=== PATIENT | male | born 1940 | race Caucasian/White ===

== ENCOUNTER → 2018-10-03 | Day surgery (SDC) | payer MEDICARE ==
[2018-09-28 12:05] LABS: BASOPHILS # (AUTO) 0.1 (0.0-0.1); BASOPHILS % 0.4 % (0.0-1.0); EOSINOPHILS # (AUTO) 0.3 (0.0-0.4); EOSINOPHILS % 2.1 % (0.0-6.0); HEMATOCRIT 42.4 % (38.2-49.6); HEMOGLOBIN 14.6 g/dL (14.0-18.0); LYMPHOCYTES # (AUTO) 2.8 (1.0-3.2); MEAN CORPUSCULAR HEMOGLOBIN 31.5 pg (28-32); MEAN CORPUSCULAR HGB CONC 34.4 g/dL (31-35); MEAN CORPUSCULAR VOLUME 91.6 fL (81-99); MONOCYTES % 7.2 % (4.4-11.3); NEUTROPHILS # (AUTO) 10.3 (2.1-6.9); NEUTROPHILS % 70.6 % (38.7-80.0); PLATELET COUNT 291 x10e3/uL (140-360); RED BLOOD COUNT 4.63 x10e6/uL (4.3-5.7); RED CELL DISTRIBUTION WIDTH 13.3 % (11.7-14.4)
[2018-09-28 12:29] LABS: ALANINE AMINOTRANSFERASE 9 IU/L (0-55); ALBUMIN 4.1 g/dL (3.5-5.0); ALKALINE PHOSPHATASE 141 IU/L (40-150); ANION GAP 16.1 mmol/L (8-16); BLOOD UREA NITROGEN 16 mg/dL (7-26); BUN/CREATININE RATIO 18 (6-25); CARBON DIOXIDE 25 mmol/L (22-29); CHLORIDE 101 mmol/L (98-107); CREATININE, SERUM 0.89 mg/dL (0.72-1.25); EST GLOMERULAR FILTRATION RATE > 60 ML/MIN (60-); GLUCOSE 116 mg/dL (74-118); POTASSIUM 4.1 mmol/L (3.5-5.1); SODIUM 138 mmol/L (136-145)
[~2018-10-03] VITALS: Ht 177.8 cm; Wt 115.7 kg
[2018-10-03] VITALS (14 sets, daily range): BP systolic 105–124; BP diastolic 46–87
[~2018-10-03] MED LIST: ALPRAZOLAM 0.5 MG TAB ONE; ASPIRIN 325 MG TAB ONE; BIVALRIUDIN 250 MG/VIAL VIAL IV ONE; CENTRUM SILVER1 EAC3 PO; CHLORPHENIRAMINE4 MG PO; DIPHENHYDRAMINE HCL 25 MG CAP ONE; FENTANYL CITRATE/PF 100MCG/2 ML INJ ONE; GLIPIZIDE ER5 MG PO; HEPARIN SOD/SOD CHLORIDE 2,000 ML ONE; IOPAMIDOL 370 MG/ML 200 ML INFUS..BTL INJ ONE; KEPPRA500 MG PO; LASIX40 MG PO; LIDOCAINE HCL 2% LOCAL 20 ML VIAL ONE; LIPITOR10 MG PO; MELATONIN3 MG PO; MIDAZOLAM HCL 2 MG/2 ML VIAL ONE; MODAFINIL200 MG PO; NITROGLYCERIN0.4 MG SL; PHENOBARBITAL32.4 MG PO; POTASSIUM CHLO10 ME1 PO; PRILOSEC20 MG PO; PROPANOLOL PO; ROBITUSSIN COU118 ML PO; SODIUM CHLORIDE 0.9% 1000ML 1,000 ML ONE; SODIUM CHLORIDE 0.9% 50ML 50 ML ONE; TICAGRELOR 90 MG TABLET ONE; VERAPAMIL HCL 2.5 MG/ML 2 ML VIAL ONE; VITAMIN B-121000 MCG PO; VITAMIN B-650 MG PO; ZAROXOLYN2.5 MG PO; ZINC SULFATE220 MG PO; [UNRECOGNIZED DRUG - OTHER] PO
--- OUTSIDE RECORDS SUMMARY | 2018-10-03 10:58 | XMS REPORT | Continuity of Care Document ---
Author Author [employer] Address Unknown Phone Unavailable Problems Problem Status Onset Date Classification Date Reported Comments Source BDDC-COLON SCREENING Active 10/24/2013 [facility] SAW DR PERLA OLVERA Active 09/21/2013 [facility] Epilepsy Resolved Problem 10/26/2013 [facility] Hypertension Resolved Problem 10/26/2013 [facility] ROUTINE MEDICAL EXAM Active [facility] Medications Medication Details Route Status Patient Instructions Ordering Provider Order Date Source {2 (480 ML Magnesium Sulfate 0.0277 MEQ/ML / potassium sulfate 0.0374 MEQ/ML / sodium sulfate 0.257 MEQ/ML Oral Solution) } Pack [Suprep Bowel Prep Kit] 177 mL, PO, BID, # 354 mL, 0 Refill(s), Pharmacy: [facility]/pharmacy #[id number] Active 10/24/2013 [facility] POLYETHYLENE GLYCOL 3350 60 MG/ML / Potassium Chloride 0.01 MEQ/ML / Sodium Bicarbonate 0.02 MEQ/ML / Sodium Chloride 0.025 MEQ/ML / sodium sulfate 0.04 MEQ/ML Oral Solution [Golytely] 240 ml, PO, Q10Min, # 1 ea, 0 Refill(s), Pharmacy: [facility]/pharmacy #[id number] Active 10/24/2013 [facility] Furosemide 40 MG Oral Tablet [Lasix] 0 Refill(s) Active 10/24/2013 [facility] Inderal 10 mg=1 tab, PO, QID, # 100 tab, 0 Refill(s) Active 10/24/2013 [facility] Unisom 0 Refill(s) Active 10/24/2013 [facility] Keppra 0 Refill(s) Active 10/24/2013 [facility] Phenobarbital 0 Refill(s) Active 10/24/2013 [facility] Aspirin Low Dose 81 mg oral tablet 0 Refill(s) Active 10/24/2013 [facility] Atrovent HFA 0 Refill(s) Active 10/24/2013 [facility] Ventolin HFA 0 Refill(s) Active 10/24/2013 [facility] 120 ACTUAT Fluticasone propionate 0.05 MG/ACTUAT Nasal Inhaler [Flonase] 0 Refill(s) Active 10/24/2013 [facility] Lipitor 0 Refill(s) Active 10/24/2013 [facility] Nitroglycerin 0.4 MG Sublingual Tablet [Nitrostat] 0.4 mg=1 tab, SL, Q5Min, Chest Pain, # 100 tab, 0 Refill(s) Active 10/24/2013 [facility] Klor-Con 0 Refill(s) Active 10/24/2013 [facility] omeprazole 20 mg oral delayed release capsule See Instructions, # 60 unknown unit, Refill(s) 5, TAKE ONE CAPSULE BY MOUTH TWICE A DAY, Pharmacy: [facility]/pharmacy #[id number] Instructions: TAKE ONE CAPSULE BY MOUTH TWICE A DAY Active 10/09/2013 [facility] omeprazole 20 mg oral delayed release capsule See Instructions, # 60 unknown unit, Refill(s) 5, TAKE ONE CAPSULE BY MOUTH TWICE A DAY, Pharmacy: [facility]/pharmacy #[id number] Instructions: TAKE ONE CAPSULE BY MOUTH TWICE A DAY No Longer Active 10/09/2013 [facility] omeprazole 20 mg oral delayed release capsule 20 mg=1 cap, PO, BID, # 60 cap, 4 Refill(s), Pharmacy: [facility]/pharmacy #[id number] No Longer Active 09/25/2013 [facility] Allergies, Adverse Reactions, Alerts Substance Category Reaction Severity Reaction type Status Date Reported Comments Source doxycycline Assertion Drug allergy Active [facility] penicillins Assertion Drug allergy Active [facility] Immunizations Immunization Date Given Site Status Last Updated Comments Source Results Order Name Results Value Reference Range Date Interpretation Comments Source Vital Signs Vital Sign Value Date Comments Source Weight 121.364 10/24/2013 [facility] Systolic (mm Hg) 143 10/24/2013 [facility] Diastolic (mm Hg) 95 10/24/2013 [facility] Heart Rate 87 10/24/2013 [facility] Respitory Rate 16 10/24/2013 [facility] BMI Calculated 38.39 10/24/2013 [facility] Height 177.8 cm 10/24/2013 [facility] Encounters Location Location Details Encounter Type Encounter Number Reason For Visit Attending Provider ADM Date DC Date Status Source [facility] [id number] Emanuel Schulte 10/24/2013 10/25/2013 [facility] Procedures Procedure Code Date Perfomer Comments Source
--- OUTSIDE RECORDS SUMMARY | 2018-10-03 10:58 | XMS REPORT | Summary of Care ---
Author Organization Unknown Address Unknown Phone Unavailable Encounter SHANIKA Mobley(NA) [id number] Date(s): 10/24/13 - 10/24/[address] Discharge Disposition: Home Physician Attending: Emanuel Schulte MD Physician_Referring: Emanuel Schulte MD Reason for Visit SAW DR PERLA OLVERA Vital Signs Most recent to 1 oldest [Reference Range]: Height 177.8 cm (10/24/13 1:57 PM) Systolic Blood 143 mmHg Pressure [90-140 *HI* mmHg] (10/24/13 1:57 PM) Diastolic Blood 95 mmHg Pressure [60-90 *HI* mmHg] (10/24/13 1:57 PM) Respiratory Rate 16 BRMIN [14-20 BRMIN] (10/24/13 1:57 PM) Peripheral Pulse 87 bpm Rate [60-100 bpm] (10/24/13 1:57 PM) Weight 121.364 kg (10/24/13 1:57 PM) Body Mass Index 38.39 m2 (10/24/13 1:57 PM) Problem List Condition Effective Dates Status Health Status Informant Epilepsy(Confirmed) Resolved Hypertension(Confirm Resolved ed) Allergies, Adverse Reactions, Alerts Substance Reaction Severity Status doxycycline Active penicillins Active Medications Aspirin Low Dose 81 mg oral tablet 0 Refill(s) Start Date: 10/24/13 Status: Ordered Atrovent HFA 0 Refill(s) Start Date: 10/24/13 Status: Ordered Flonase 0.05 mg/inh nasal spray 0 Refill(s) Start Date: 10/24/13 Status: Ordered GoLYTELY oral powder for reconstitution 240 ml, PO, Q10Min, # 1 ea, 0 Refill(s), Pharmacy: [facility]/pharmacy #[id number] Start Date: 10/24/13 Status: Ordered Inderal 10 mg=1 tab, PO, QID, # 100 tab, 0 Refill(s) Start Date: 10/24/13 Status: Ordered Keppra 0 Refill(s) Start Date: 10/24/13 Status: Ordered Klor-Con 0 Refill(s) Start Date: 10/24/13 Status: Ordered Lasix 40 mg oral tablet 0 Refill(s) Start Date: 10/24/13 Status: Ordered Lipitor 0 Refill(s) Start Date: 10/24/13 Status: Ordered Nitrostat 0.4 mg sublingual tablet 0.4 mg=1 tab, SL, Q5Min, Chest Pain, # 100 tab, 0 Refill(s) Start Date: 10/24/13 Status: Ordered omeprazole 20 mg oral delayed release capsule 20 mg=1 cap, PO, BID, # 60 cap, 4 Refill(s), [id number] Start Date: 09/25/13 Stop Date: 10/24/13 Status: Deleted omeprazole 20 mg oral delayed release capsule See Instructions, # 60 unknown unit, Refill(s) 5, TAKE ONE CAPSULE BY MOUTH TWIC E A DAY, Pharmacy: [facility]/pharmacy #[id number] Special Instructions: TAKE ONE CAPSULE BY MOUTH TWICE A DAY Start Date: 10/09/13 Status: Ordered omeprazole 20 mg oral delayed release capsule See Instructions, # 60 unknown unit, Refill(s) 5, TAKE ONE CAPSULE BY MOUTH TWIC E A DAY, Pharmacy: [facility]/pharmacy #[id number] Special Instructions: TAKE ONE CAPSULE BY MOUTH TWICE A DAY Start Date: 10/09/13 Stop Date: 10/24/13 Status: Deleted PHENobarbital 0 Refill(s) Start Date: 10/24/13 Status: Ordered Suprep Bowel Prep Kit oral liquid 177 mL, PO, BID, # 354 mL, 0 Refill(s), Pharmacy: [facility]/pharmacy #[id number] Start Date: 10/24/13 Status: Ordered Unisom 0 Refill(s) Start Date: 10/24/13 Status: Ordered Ventolin HFA 0 Refill(s) Start Date: 10/24/13 Status: Ordered Medications Administered During Your Visit No data available for this section Immunizations No data available for this section Social History Social History Type Response Smoking Status Never smoker, Exposure to Tobacco Smoke None, Cigarette Smoking Last 365 Days No, Reg Smoking Cessation Counseling No
--- NOTE | 2018-10-03 12:57 | NUR ---
1257pm Received in Rm #[address] [facility] Helms with stent placement. Identifierx2 Report handoff from Jared Whiteside to Chapis Whiteside to ERNESTO/RN.Pt has copy of new prescription. No gross issues with pain pallor pressure or dysrhythmia.BAck to baseline orientation Resp shallow and regular Abdomen soft and non tender denies necessity to defecate or urinate. Tolerating po intake. Left ac iv infusing NS w/o s/s infiltration. TR band site w/o issues of hematoma or oozing.Neuro vascular function intact to right wrist area. For decreasing TR band air at 1500pm and dc ok at 1700pm Will call nizuly for pickup. ernesto/rn
--- NOTE | 2018-10-03 15:00 | NUR ---
1500 release of TR band air to 12cc bladder initiated. -2cc No gross issues with pain pallor pressure or dysrhythmia. vascular-neuro function intact to right hand,radial pulse adequate 1515pm-2cc vascular-neuro function intact to right hand,radial pulse adequate 1530pm -2cc vascular-neuro function intact to right hand,radial pulse adequate 1545pm -2cc vascular-neuro function intact to right hand sterile 2x2 ,Coban and Tegderm in place. Arm splint applied called niece for pt lemon picker ds/rn
--- NOTE | 2018-10-03 17:15 | NUR ---
1715 Niece arrived DC plans discussed both aware of POC and importance to f/o with Dr Helms Dressed and escorted to car wiht her as dedicated regional driver per w/c Iv was removed and site w/o s/s in filtration and Coban dressing in place. Buckled in car for safety Tolerating PO intake and back to baseline orientation. No gross issues with pain,pallor, pressure or dysrhythmia. ds/rn
--- NOTE | 2018-11-06 11:26 | Operative Report ---
DATE OF PROCEDURE: 10/03/2018 SURGEON: Shan Helms MD INDICATION: Coronary artery disease, abnormal stress test. PROCEDURES PERFORMED: 1. Left heart catheterization, selective coronary angiography, left ventriculography. 2. Stent placement to the mid and proximal circumflex artery. 3. Deployment right wrist TR band. COMPLICATIONS: None. RECOMMENDATIONS: Dual antiplatelet therapy for at least 6 months. DESCRIPTION OF PROCEDURE: Access obtained in the right radial artery. A 5-Israeli sheath was placed. Diagnostic coronary angiogram revealed mild disease in the left main and left anterior descending artery, diagonal artery 50% ostial stenosis, mid circumflex 80% stenosis, right coronary artery mild less than 20% stenosis, LV ejection fraction 40%, LV end-diastolic pressure of 10. A decision was made to intervene on the circumflex artery. The patient received Angiomax, oral aspirin and Brilinta for anticoagulation. The left main was cannulated using an XB 3 and EBU 3.75, 5-Israeli guiding catheter, primary stent 2.75 x 18 mm Resolute Lambert deployed at 14 atmospheres. Postdilatation with a 3.75 mm balloon. Excellent end result less than 10% residual stenosis, PRABHA-3 flow. No complications. Right wrist wire guide sheath removed, TR band applied. The patient discharged home same day. Shan Helms MD [facility] /[id number]
== END | disposition home or self-care (01) ==
LOC: CATH LAB 10:51
PROVIDERS: ATTEND Internal Medicine Interventional Cardiology
DX: I25.10 Atherosclerotic heart disease of native coronary artery without angina pectoris (principal); R94.39 Abnormal result of other cardiovascular function study; I25.2 Old myocardial infarction; Z86.73 Personal history of transient ischemic attack (TIA), and cerebral infarction without residual deficits; I25.118 Atherosclerotic heart disease of native coronary artery with other forms of angina pectoris; I73.9 Peripheral vascular disease, unspecified; I87.2 Venous insufficiency (chronic) (peripheral); Z01.812 Encounter for preprocedural laboratory examination; Z79.84 Long term (current) use of oral hypoglycemic drugs; Z68.41 Body mass index [BMI] 40.0-44.9, adult; Z82.49 Family history of ischemic heart disease and other diseases of the circulatory system; Z82.3 Family history of stroke
CPT/HCPCS: 93458; C9600; 36415; 80053; 85025; 92928; C1769; C1874; C1887; J0583; J2001; J2250; J3010; J7030; Q9967

== ENCOUNTER 2019-02-08 05:54 | Observation (INO) | payer MEDICARE ==
[~2019-02-08] VITALS: Ht 177.8 cm; Wt 111.1 kg
[~2019-02-08 05:54] MED LIST changes: -ALPRAZOLAM 0.5 MG TAB ONE; -ASPIRIN 325 MG TAB ONE; -BIVALRIUDIN 250 MG/VIAL VIAL IV ONE; -DIPHENHYDRAMINE HCL 25 MG CAP ONE; -FENTANYL CITRATE/PF 100MCG/2 ML INJ ONE; -HEPARIN SOD/SOD CHLORIDE 2,000 ML ONE; -IOPAMIDOL 370 MG/ML 200 ML INFUS..BTL INJ ONE; -LIDOCAINE HCL 2% LOCAL 20 ML VIAL ONE; -MIDAZOLAM HCL 2 MG/2 ML VIAL ONE; -SODIUM CHLORIDE 0.9% 1000ML 1,000 ML ONE; -SODIUM CHLORIDE 0.9% 50ML 50 ML ONE; -TICAGRELOR 90 MG TABLET ONE; -VERAPAMIL HCL 2.5 MG/ML 2 ML VIAL ONE
--- OUTSIDE RECORDS SUMMARY | 2019-02-08 05:56 | XMS REPORT | Continuity of Care Document ---
Author Author [employer] Address Unknown Phone Unavailable Care Team Providers Care Internet Sales Consultant Name Role Phone [employer] Unavailable Unavailable Problems Problem Status Onset Date Classification Date Reported Comments Source BDDC-COLON SCREENING Active 10/24/2013 [facility] SAW DR PERLA OLVERA Active 09/21/2013 [facility] Epilepsy (disorder) Resolved Problem 10/26/2013 [facility] Hypertensive disorder, systemic arterial (disorder) Resolved Problem 10/26/2013 [facility] ROUTINE MEDICAL EXAM Active [facility] Medications Medication Details Route Status Patient Instructions Ordering Provider Order Date Source {2 (480 ML Magnesium Sulfate 0.0277 MEQ/ML / potassium sulfate 0.0374 MEQ/ML / sodium sulfate 0.257 MEQ/ML Oral Solution) } Pack [Suprep Bowel Prep Kit] 177 mL, PO, BID, # 354 mL, 0 Refill(s), Pharmacy: [facility]/pharmacy #[id number] Active 10/24/2013 [facility] POLYETHYLENE GLYCOL 3350 60 MG/ML / Potassium Chloride 0.01 MEQ/ML / Sodium Bicarbonate 0.02 MEQ/ML / Sodium Chloride 0.025 MEQ/ML / sodium sulfate 0.04 MEQ/ML Oral Solution [Golytely] 240 ml, PO, Q10Min, # 1 ea, 0 Refill(s), Pharmacy: [facility]/pharmacy #[id number] Active 10/24/2013 [facility] Furosemide 40 MG Oral Tablet [Lasix] 0 Refill(s) Active 10/24/2013 [facility] Inderal 10 mg=1 tab, PO, QID, # 100 tab, 0 Refill(s) Active 10/24/2013 [facility] Unisom 0 Refill(s) Active 10/24/2013 [facility] Keppra 0 Refill(s) Active 10/24/2013 [facility] Phenobarbital 0 Refill(s) Active 10/24/2013 [facility] Aspirin Low Dose 81 mg oral tablet 0 Refill(s) Active 10/24/2013 [facility] Atrovent HFA 0 Refill(s) Active 10/24/2013 [facility] Ventolin HFA 0 Refill(s) Active 10/24/2013 [facility] 120 ACTUAT Fluticasone propionate 0.05 MG/ACTUAT Nasal Inhaler [Flonase] 0 Refill(s) Active 10/24/2013 [facility] Lipitor 0 Refill(s) Active 10/24/2013 [facility] Nitroglycerin 0.4 MG Sublingual Tablet [Nitrostat] 0.4 mg=1 tab, SL, Q5Min, Chest Pain, # 100 tab, 0 Refill(s) Active 10/24/2013 [facility] Klor-Con 0 Refill(s) Active 10/24/2013 [facility] omeprazole 20 mg oral delayed release capsule See Instructions, # 60 unknown unit, Refill(s) 5, TAKE ONE CAPSULE BY MOUTH TWICE A DAY, Pharmacy: [facility]/pharmacy #[id number] Instructions: TAKE ONE CAPSULE BY MOUTH TWICE A DAY Active 10/09/2013 [facility] omeprazole 20 mg oral delayed release capsule See Instructions, # 60 unknown unit, Refill(s) 5, TAKE ONE CAPSULE BY MOUTH TWICE A DAY, Pharmacy: [facility]/pharmacy #[id number] Instructions: TAKE ONE CAPSULE BY MOUTH TWICE A DAY No Longer Active 10/09/2013 [facility] omeprazole 20 mg oral delayed release capsule 20 mg=1 cap, PO, BID, # 60 cap, 4 Refill(s), Pharmacy: [facility]/pharmacy #[id number] No Longer Active 09/25/2013 [facility] Allergies, Adverse Reactions, Alerts Substance Category Reaction Severity Reaction type Status Date Reported Comments Source doxycycline Assertion Drug allergy Active [facility] penicillins Assertion Drug allergy Active [facility] Immunizations No Data Provided for This Section Results No Data Provided for This Section Pathology Reports No Data Provided for This Section Diagnostic Reports No Data Provided for This Section Consultation Notes No Data Provided for This Section Discharge Summaries No Data Provided for This Section History and Physicals No Data Provided for This Section Vital Signs Vital Sign Value Date Comments Source Weight 121.364 10/24/2013 [facility] Systolic (mm Hg) 143 10/24/2013 [facility] Diastolic (mm Hg) 95 10/24/2013 [facility] Heart Rate 87 10/24/2013 [facility] Respitory Rate 16 10/24/2013 [facility] BMI Calculated 38.39 10/24/2013 [facility] Height 177.8 cm 10/24/2013 [facility] Encounters Location Location Details Encounter Type Encounter Number Reason For Visit Attending Provider ADM Date DC Date Status Source [facility] [id number] Emanuel Schulte 10/24/2013 10/25/2013 [facility] Procedures No Data Provided for This Section Assessment and Plan No Data Provided for This Section Plan of Care No Data Provided for This Section Social History Social History Date Source Social History TypeResponse Smoking Status Never smoker, Exposure to Tobacco Smoke None, Cigarette Smoking Last 365 Days No, Reg Smoking Cessation Counseling No 10/24/2013 [facility] Family History No Data Provided for This Section Advance Directives No Data Provided for This Section Functional Status No Data Provided for This Section
[2019-02-08 06:35] LABS: BASOPHILS # (AUTO) 0.1 (0.0-0.1); BASOPHILS % 0.6 % (0.0-1.0); EOSINOPHILS # (AUTO) 0.3 (0.0-0.4); EOSINOPHILS % 2.7 % (0.0-6.0); HEMATOCRIT 41.6 % (38.2-49.6); HEMOGLOBIN 13.9 g/dL (14.0-18.0); LYMPHOCYTES # (AUTO) 1.8 (1.0-3.2); LYMPHOCYTES % 19.1 % (18.0-39.1); MEAN CORPUSCULAR HGB CONC 33.4 g/dL (31-35); MEAN CORPUSCULAR VOLUME 92.7 fL (81-99); MONOCYTES # (AUTO) 0.8 (0.2-0.8); MONOCYTES % 8.6 % (4.4-11.3); NEUTROPHILS # (AUTO) 6.5 (2.1-6.9); NEUTROPHILS % 68.3 % (38.7-80.0); PLATELET COUNT 245 x10e3/uL (140-360); RED BLOOD COUNT 4.49 x10e6/uL (4.3-5.7); RED CELL DISTRIBUTION WIDTH 13.7 % (11.7-14.4)
[2019-02-08 06:50] LABS: INR 0.87; PROTHROMBIN TIME 12.3 seconds (11.9-14.5)
[2019-02-08 06:51] LABS: PARTIAL THROMBOPLASTIN TIME 28.8 seconds (23.8-35.5)
[2019-02-08 06:58] LABS: ALANINE AMINOTRANSFERASE 14 IU/L (0-55); ALBUMIN 3.7 g/dL (3.5-5.0); ALKALINE PHOSPHATASE 110 IU/L (40-150); ANION GAP 12.4 mmol/L (8-16); BLOOD UREA NITROGEN 12 mg/dL (7-26); BUN/CREATININE RATIO 14 (6-25); CALCIUM 9.4 mg/dL (8.4-10.2); CARBON DIOXIDE 30 mmol/L (22-29); CHLORIDE 97 mmol/L (98-107); CREATINE KINASE 35 IU/L (30-200); CREATININE, SERUM 0.85 mg/dL (0.72-1.25); EST GLOMERULAR FILTRATION RATE > 60 ML/MIN (60-); GLUCOSE 135 mg/dL (74-118); POTASSIUM 4.4 mmol/L (3.5-5.1); SODIUM 135 mmol/L (136-145)
[2019-02-08] MEDS ORDERED: MORPHINE SULFATE 2 MG/ML SYR 1ML IV PRN (07:30)
[2019-02-08] MEDS ORDERED: DEXTROSE 50% SYRINGE 50 ML IV PRN (07:30)
[2019-02-08] MEDS ORDERED: ONDANSETRON HCL INJ 2MG/ML 2ML 2 MG/ML VIAL IV PRN (07:30)
[2019-02-08] MEDS ORDERED: NITROGLYCERIN 0.4 MG SUBL SL PRN ×2 (07:30→15:30)
--- NOTE | 2019-02-08 07:33 | Diagnostic Imaging Report ---
EXAMINATION: CHEST 2 VIEWS INDICATION: Chest pressure, resolved. COMPARISON: None FINDINGS: TUBES and LINES: None. LUNGS: Lungs are well inflated. Mild central vascular congestion. Minimal patchy bibasilar opacity, likely atelectasis. There is no evidence of pneumonia or pulmonary edema. PLEURA: No pleural effusion or pneumothorax. HEART AND MEDIASTINUM: The cardiomediastinal silhouette is not enlarged. 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 BONES AND SOFT TISSUES: No acute osseous abnormality. UPPER ABDOMEN: No free air under the diaphragm. IMPRESSION: No acute radiographic abnormality. Signed by: Dr. Leena Arzate MD on 02/08/2019 7:29 AM
[2019-02-08] MEDS: INSULIN LISPRO 100 UNIT/1 ML 3ML VIAL SQ SCH ×4 (08:15→21:03)
[2019-02-08] MEDS: ASPIRIN 81 MG ENTERIC COATED PO SCH (08:16)
[2019-02-08] MEDS: CLOPIDOGREL BISULFATE 75 MG TAB PO SCH (08:16)
--- NOTE | 2019-02-08 09:15 | NUR ---
PT AMBULATORY TO RESTROOM W/ WALKER, NAD NOTED, BREATHING EVEN/UNLABORED, NON-DIAPHORETIC.
--- OUTSIDE RECORDS SUMMARY | 2019-02-08 10:24 | XMS REPORT ---
Author [facility] Address Unknown Phone Unavailable Care Team Providers Care Carbonizer Tester Name Role Phone Lizbet PAINTER Unavailable Unavailable Problems This patient has no known problems. Allergies, Adverse Reactions, Alerts This patient has no known allergies or adverse reactions. Medications This patient has no known medications. Results Test Description Test Time Test Comments Text Results Atomic Results Result Comments CHEST 2 VIEWS 2019-02-08 07:27:00 [facility] [address] [place] [address] Patient Name: ELIZABETH ISAACS MR #: [id number] : 1940 Age/Sex: 79/M Req #: [id number] Adm Physician: Ordered by: OLGA UMAÑA MD Report #: [id number] Location: ER Room/Bed: Procedure: [id number] DX/CHEST 2 VIEWS Exam Date: 02/08/19 Exam Time: 0635 REPORT STATUS: Signed EXAMINATION: CHEST 2 VIEWS INDICATION: Chest press ure, resolved. COMPARISON: None FINDINGS: TUBES and LINES: None. LUNGS: Lungs are well inflated. Mild central vascular congestion. Minimal patchy bibasilar opacity, likely atelectasis. There is no evidence of pneumonia or pulmonary edema. PLEURA: No pleural effusion or pneumothorax. HEART AND MEDIASTINUM: The cardiomediastinal silhouette is not enlarged. 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 BONES AND SOFT TISSUES: No acute osseous abnormality. UPPER ABDOMEN: No free air under the diaphragm. IMPRESSION: No acute radiographic abnormality. Signed by: Dr. Patricia Calderón MD on 02/08/2019 7:29 AM Dictated By: PATRICIA CALDERÓN MD 8 Transcribed By: BIJAN on 02/08/19728 COPY TO: OLGA UMAÑA MD
--- OUTSIDE RECORDS SUMMARY | 2019-02-08 10:24 | XMS REPORT | Continuity of Care Document ---
Author Author [facility] Address Unknown Phone Unavailable Care Team Providers Care Burlesque Dancer Name Role Phone Bunker Mode Information NEWLINE SOFTWARE Unavailable Unavailable Problems Problem Status Onset Date Classification Date Reported Comments Source BDDC-COLON SCREENING Active 10/24/2013 [facility] SAW DR PERLA OLVERA Active 09/21/2013 [facility] Epilepsy (disorder) Resolved Problem 10/26/2013 [facility] Hypertensive disorder, systemic arterial (disorder) Resolved Problem 10/26/2013 [facility] ROUTINE MEDICAL EXAM Active [facility] Medications Medication Details Route Status Patient Instructions Ordering Provider Order Date Source {2 (480 ML Magnesium Sulfate 0.0277 MEQ/ML / potassium sulfate 0.0374 MEQ/ML / sodium sulfate 0.257 MEQ/ML Oral Solution) } Pack [Suprep Bowel Prep Kit] 177 mL, PO, BID, # 354 mL, 0 Refill(s), Pharmacy: [facility]/pharmacy #[id number] Active 10/24/2013 [facility] POLYETHYLENE GLYCOL 3350 60 MG/ML / Potassium Chloride 0.01 MEQ/ML / Sodium Bicarbonate 0.02 MEQ/ML / Sodium Chloride 0.025 MEQ/ML / sodium sulfate 0.04 MEQ/ML Oral Solution [Golytely] 240 ml, PO, Q10Min, # 1 ea, 0 Refill(s), Pharmacy: [facility]/pharmacy #[id number] Active 10/24/2013 [facility] Furosemide 40 MG Oral Tablet [Lasix] 0 Refill(s) Active 10/24/2013 [facility] Inderal 10 mg=1 tab, PO, QID, # 100 tab, 0 Refill(s) Active 10/24/2013 [facility] Unisom 0 Refill(s) Active 10/24/2013 [facility] Keppra 0 Refill(s) Active 10/24/2013 [facility] Phenobarbital 0 Refill(s) Active 10/24/2013 [facility] Aspirin Low Dose 81 mg oral tablet 0 Refill(s) Active 10/24/2013 [facility] Atrovent HFA 0 Refill(s) Active 10/24/2013 [facility] Ventolin HFA 0 Refill(s) Active 10/24/2013 [facility] 120 ACTUAT Fluticasone propionate 0.05 MG/ACTUAT Nasal Inhaler [Flonase] 0 Refill(s) Active 10/24/2013 [facility] Lipitor 0 Refill(s) Active 10/24/2013 [facility] Nitroglycerin 0.4 MG Sublingual Tablet [Nitrostat] 0.4 mg=1 tab, SL, Q5Min, Chest Pain, # 100 tab, 0 Refill(s) Active 10/24/2013 [facility] Klor-Con 0 Refill(s) Active 10/24/2013 [facility] omeprazole 20 mg oral delayed release capsule See Instructions, # 60 unknown unit, Refill(s) 5, TAKE ONE CAPSULE BY MOUTH TWICE A DAY, Pharmacy: [facility]/pharmacy #[id number] Instructions: TAKE ONE CAPSULE BY MOUTH TWICE A DAY Active 10/09/2013 [facility] omeprazole 20 mg oral delayed release capsule See Instructions, # 60 unknown unit, Refill(s) 5, TAKE ONE CAPSULE BY MOUTH TWICE A DAY, Pharmacy: [facility]/pharmacy #[id number] Instructions: TAKE ONE CAPSULE BY MOUTH TWICE A DAY No Longer Active 10/09/2013 [facility] omeprazole 20 mg oral delayed release capsule 20 mg=1 cap, PO, BID, # 60 cap, 4 Refill(s), Pharmacy: [facility]/pharmacy #[id number] No Longer Active 09/25/2013 [facility] Allergies, Adverse Reactions, Alerts Substance Category Reaction Severity Reaction type Status Date Reported Comments Source doxycycline Assertion Drug allergy Active [facility] penicillins Assertion Drug allergy Active [facility] Immunizations No Data Provided for This Section [...] Value Date Comments Source Weight 121.364 10/24/2013 [facility] Systolic (mm Hg) 143 10/24/2013 [facility] Diastolic (mm Hg) 95 10/24/2013 [facility] Heart Rate 87 10/24/2013 [facility] Respitory Rate 16 10/24/2013 [facility] BMI Calculated 38.39 10/24/2013 [facility] Height 177.8 cm 10/24/2013 [facility] Encounters Location Location Details Encounter Type Encounter Number Reason For Visit Attending Provider ADM Date DC Date Status Source [facility] [id number] Emanuel Schulte 10/24/2013 10/25/2013 [facility] Procedures No Data Provided for This Section Assessment and Plan No Data Provided for This Section Plan of Care No Data Provided for This Section Social History Social History Date Source Social History TypeResponse Smoking Status Never smoker, Exposure to Tobacco Smoke None, Cigarette Smoking Last 365 Days No, Reg Smoking Cessation Counseling No 10/24/2013 [facility] Family History No Data Provided for This Section Advance Directives No Data Provided for This Section Functional Status No Data Provided for This Section
--- NOTE | 2019-02-08 12:57 | NUR ---
PT ASSISTED WITH LUNCH TRAY, TOLERATING WELL AT THIS TIME, NO NEEDS VOICED AT THIS TIME; WILL CONTINUE TO MONITOR.
[2019-02-08 14:39] LABS: CREATINE KINASE MB 0.8 ng/mL (0-5.0)
[2019-02-08 14:43] VITALS: BP 139/65
[2019-02-08 14:46] VITALS: BP 139/65
[2019-02-08] MEDS ORDERED: ZINC SULFATE 220 MG CAP PO PRN (15:30)
[2019-02-08 16:14] LABS: FREE THYROXINE INDEX 2.1533 (1.4-3.8); THYROID STIMULATING HORMONE 1.856 uIU/mL (0.350-4.940)
[2019-02-08] MEDS: PANTOPRAZOLE SOD 40 MG TABEC PO SCH (16:34)
[2019-02-08] MEDS: LEVETIRACETAM 500 MG TAB PO SCH (16:34)
[2019-02-08] MEDS ORDERED: OMEPRAZOLE 20 MG CAP PO SCH (17:00)
--- NOTE | 2019-02-08 19:00 | NUR ---
RECEIVED PATIENT IN BEDSIDE REPORT. PATIENT RESTING IN BED AT THIS TIME. NO PAIN REPORTED. NO S&S OF DISTRESS NOTED. BED LOCKED IN LOWEST POSITION, SIDE RAILS UPX2, CALL LIGHT IN REACH.
[2019-02-08 19:53] VITALS: BP 143/78
[2019-02-08 20:17] VITALS: BP 143/78
[2019-02-08] MEDS ORDERED: ATORVASTATIN 20 MG TAB PO SCH (21:00)
[2019-02-08] MEDS ORDERED: MELATONIN 5 MG TABLET PO SCH (21:00)
[2019-02-08] MEDS ORDERED: MELATONIN 3 MG TAB PO SCH (21:00)
[2019-02-08 22:02] LABS: CREATINE KINASE MB 1.1 ng/mL (0-5.0)
--- NOTE | 2019-02-08 22:11 | History and Physical ---
PRIMARY CARE PHYSICIAN: Dr. Layton Srivastava. CHIEF COMPLAINT: Chest pain and palpitations. HISTORY OF PRESENT ILLNESS: An 79-year-old man presented with chest pain and palpitations that started overnight. He reports ringing in his ear, which is chronic, but it was worsened. He denies any shortness of breath, fever, chills, nausea, vomiting, diaphoresis, or change in LOC. He reported calling over and presented to the ER for further workup. PAST MEDICAL HISTORY: 1. Hypertension. 2. Epilepsy. 3. Osteoarthritis. 4. Congestive heart failure. 5. Gastroesophageal reflux disease. 6. Diabetes. 7. Sleep apnea. 8. Narcolepsy. SURGICAL HISTORY: 1. Tonsillectomy. 2. Appendectomy. 3. Prostate reduction. 4. Cataract of bilateral eyes. FAMILY MEDICAL HISTORY: He reports cancer and hypertension on both mother and father's side of family. SOCIAL HISTORY: He denies any tobacco, alcohol, or drug use. He lives with his sister and retired. ALLERGIES: HE IS ALLERGIC TO PENICILLIN, AMANTADINE, LEVOFLOXACIN, NAPROXEN, , AND DILANTIN. REVIEW OF SYSTEMS: GENERAL: No acute distress. HEENT: No trauma to the head. LUNGS: No shortness of breath or cough. CARDIOVASCULAR: Reports chest pain and palpitations on and off. GASTROINTESTINAL: No nausea, vomiting. NEUROLOGIC: Alert and oriented. MUSCULOSKELETAL: Generalized weakness. SKIN: No rash or laceration. PHYSICAL ASSESSMENT: VITAL SIGNS: Temperature 98.1, pulse is 63, respirations 20, blood pressure 139/65, and pulse ox is 99 on room air. GENERAL: In bed with no acute distress. HEENT: Normocephalic and atraumatic. PERRLA. NECK: Supple and midline. LUNGS: Decreased breath sounds. CARDIOVASCULAR: Normal rate and rhythm. GASTROINTESTINAL: Soft and nontender and obese. NEUROLOGIC: Alert, awake, oriented x3. MUSCULOSKELETAL: Generalized weakness, but active ROM. SKIN: Dry and intact. LABORATORY DATA: WBC 9.58, hemoglobin is 13.9, hematocrit 41.6, and platelets 245. Sodium 135, carbon dioxide is 30, BUN 12, creatinine 0.85, estimated GFR is greater than 60, and glucose is 135. LFTs within normal limits. Troponin first set is 0.001. Next one at 1300 was 0.006. IMAGING: Chest x-ray, no acute radiographic abnormalities noted on chest x-ray. EKG normal sinus rhythm with no ST changes with a heart rate of 60 beats per minute. IMPRESSION: 1. Chest pain, rule out acute coronary syndrome. Troponins x2 is negative. Continue to trend and cardiac tele monitor. EKG normal sinus rhythm with no ST changes. Plavix and aspirin started in the ER. Cardiology has been consulted. Further recs per Cardiology. 2. Hypertension. Continue home medications. 3. History of congestive heart failure. I do not know what type. We will continue Lasix and current medications. 4. Diabetes type 2. We will take hemoglobin A1c and continue Accu-Chek before meals and at bedtime with sliding scale insulin. 5. Epilepsy. We will resume home medication. 6. Osteoarthritis. Pain medication as needed. 7. History of gastroesophageal reflux disease. We will continue home dose of omeprazole. 8. Sleep apnea. May use CPAP at night and we will continue to monitor the tele monitor, chest x-ray has been negative, cardiac enzymes so far have been negative. Pending cardiology evaluation. Dictated by MASSIMO Kat Wesley Munoz MD MY/MODL /[id number] Seen and examined on 02/08/2019. Agree with the findings and plan as documented by MASSIMO Winston. MTDD
[2019-02-09 00:25] VITALS: BP 109/57
[2019-02-09 03:50] VITALS: BP 121/68
--- NOTE | 2019-02-09 05:14 | NUR ---
PATIENT RESTING, BREATHING EVEN AND NON-LABORED. NO S&S OF DISTRESS NOTED. BED LOCKED IN LOWEST POSITION, SIDE RAILS UPX2, CALL LIGHT IN REACH.
[2019-02-09 05:20] LABS: BASOPHILS # (AUTO) 0.1 (0.0-0.1); BASOPHILS % 0.5 % (0.0-1.0); EOSINOPHILS # (AUTO) 0.3 (0.0-0.4); EOSINOPHILS % 2.7 % (0.0-6.0); HEMATOCRIT 39.7 % (38.2-49.6); HEMOGLOBIN 13.2 g/dL (14.0-18.0); LYMPHOCYTES % 20.9 % (18.0-39.1); MEAN CORPUSCULAR HEMOGLOBIN 30.8 pg (28-32); MEAN CORPUSCULAR HGB CONC 33.2 g/dL (31-35); MEAN CORPUSCULAR VOLUME 92.5 fL (81-99); MONOCYTES # (AUTO) 0.8 (0.2-0.8); MONOCYTES % 8.9 % (4.4-11.3); NEUTROPHILS # (AUTO) 6.3 (2.1-6.9); NEUTROPHILS % 66.6 % (38.7-80.0); PLATELET COUNT 185 x10e3/uL (140-360); RED BLOOD COUNT 4.29 x10e6/uL (4.3-5.7); RED CELL DISTRIBUTION WIDTH 13.7 % (11.7-14.4)
[2019-02-09 05:43] LABS: ALANINE AMINOTRANSFERASE 13 IU/L (0-55); ALBUMIN 3.1 g/dL (3.5-5.0); ALBUMIN/GLOBULIN RATIO 0.9 (0.8-2.0); ALKALINE PHOSPHATASE 91 IU/L (40-150); BLOOD UREA NITROGEN 13 mg/dL (7-26); BUN/CREATININE RATIO 17 (6-25); CALCIUM 9.1 mg/dL (8.4-10.2); CARBON DIOXIDE 25 mmol/L (22-29); CHLORIDE 100 mmol/L (98-107); CHOL/HDL RATIO 3.4 (3.9-4.7); CHOLESTEROL 120 MD/DL (0-199); CREATININE, SERUM 0.77 mg/dL (0.72-1.25); EST GLOMERULAR FILTRATION RATE > 60 ML/MIN (60-); GLUCOSE 126 mg/dL (74-118); HDL CHOLESTEROL 35 MG/DL (40-60); LDL CHOLESTEROL 68 MG/DL (60-130); SODIUM 132 mmol/L (136-145); TRIGLYCERIDES 86 MG/DL (0-149)
[2019-02-09 06:10] LABS: CREATINE KINASE MB 1.2 ng/mL (0-5.0)
--- NOTE | 2019-02-09 07:00 | NUR ---
BEDSIDE SHIFT REPORT RECEIVED FROM THE CALL MANAGER RN. EDUCATED PT ABOUT FALL PRECAUTIONS. PT VERBALIZED UNDERSTANDING. CALL LIGHT WITH IN EASY REACH. BED IS LOCKED. PT DENIES NEEDS AT THIS TIME.
[2019-02-09] MEDS: PANTOPRAZOLE SOD 40 MG TABEC PO SCH (08:00)
[2019-02-09] MEDS: INSULIN LISPRO 100 UNIT/1 ML 3ML VIAL SQ SCH ×2 (08:30→11:30)
[2019-02-09 08:38] VITALS: BP 117/52
[2019-02-09] MEDS: ASPIRIN 81 MG ENTERIC COATED PO SCH (08:52)
[2019-02-09] MEDS: LEVETIRACETAM 500 MG TAB PO SCH (08:52)
[2019-02-09] MEDS: CLOPIDOGREL BISULFATE 75 MG TAB PO SCH (08:53)
[2019-02-09] MEDS ORDERED: ATORVASTATIN 10 MG TAB PO SCH (09:00)
[2019-02-09] MEDS ORDERED: CYANOCOBALAMIN 1,000 MCG TAB PO SCH (09:00)
[2019-02-09] MEDS ORDERED: POTASSIUM CHLORIDE 10MEQ EA PO SCH (09:00)
[2019-02-09] MEDS ORDERED: FUROSEMIDE 40 MG TAB PO SCH (09:00)
--- NOTE | 2019-02-09 11:30 | NUR ---
BRENDEN TO D/C PT PER DR. MONTENEGRO AND SABIHA
--- NOTE | 2019-02-09 11:45 | NUR ---
INFORMED PT ABOUT D/C. PT IS WAITING FOR THE RIDE.
[2019-02-09 13:04] VITALS: BP 160/65
--- NOTE | 2019-02-09 13:15 | NUR ---
PT DISCHARGED HOME SAFELY WITH FAMILY. PT ESCORTED WITH PT OWN WALKER TO THE FRONT ENTRANCE. NO RX PER DR. MONTENEGRO.IV AND TELE REMOVED. TIP INTACT. DRESSING APPLIED. PT DENIED FURTHER NEEDS.
--- NOTE | 2019-02-10 07:06 | Discharge Summary ---
PRIMARY CARE DOCTOR: Dr. Layton Srivastava. FINAL DIAGNOSIS: Noncardiac chest pain. SECONDARY DIAGNOSES: 1. Coronary artery disease with stent a couple of months ago. 2. Hypertension. 3. Congestive heart failure, unknown type, compensated. 4. Diabetes. 5. Obesity. CONSULTANTS: Dr. Jersey Dickinson, Cardiology. PROCEDURES/STUDIES PERFORMED: None. HISTORY: Per [facility]. HOSPITAL COURSE: The patient was monitored overnight. He did well. He had 3 negative troponins. Therefore, no acute myocardial infarction. The patient had a little bit of hyponatremia, asymptomatic, nothing needs to be done at this time. The patient was seen and examined today. The patient will follow up with his primary care doctor and his photogrammetric technician in 2 weeks. CONDITION ON DISCHARGE: Improved. DISCHARGE MEDICATIONS: Please see medication reconciliation form. MD LEMUEL Vigil/BEAU /[id number] cc: Layton Srivastava Seen and examined on 02/08/2019. Agree with the findings and plan as documented by MASSIMO Winston. SIMEON
== END 2019-02-09 13:15 | disposition home or self-care (01) ==
LOC: ER 05:54 → ERHOLD 10:20 → MED/SURG2 14:28
PROVIDERS: ADMIT Internal Medicine; ATTEND Internal Medicine
DX: R07.89 Other chest pain (principal); I25.10 Atherosclerotic heart disease of native coronary artery without angina pectoris; R42 Dizziness and giddiness; E11.9 Type 2 diabetes mellitus without complications; E78.5 Hyperlipidemia, unspecified; G40.909 Epilepsy, unspecified, not intractable, without status epilepticus; Z82.49 Family history of ischemic heart disease and other diseases of the circulatory system; Z88.0 Allergy status to penicillin; Z88.8 Allergy status to other drugs, medicaments and biological substances; I11.0 Hypertensive heart disease with heart failure; I50.9 Heart failure, unspecified; M19.90 Unspecified osteoarthritis, unspecified site; G47.30 Sleep apnea, unspecified; K21.9 Gastro-esophageal reflux disease without esophagitis; Z95.5 Presence of coronary angioplasty implant and graft; E66.9 Obesity, unspecified; E87.1 Hypo-osmolality and hyponatremia; Z68.35 Body mass index [BMI] 35.0-35.9, adult; Z79.84 Long term (current) use of oral hypoglycemic drugs
CPT/HCPCS: 36415 ×2; 71046; 80053 ×2; 80061; 82550 ×2; 82553 ×2; 82948 ×2; 83036; 84436; 84443; 84479; 84484 ×2; 85025 ×2; 85610; 85730; 93005; 93306; 94760; 99285; G0378 ×2; S0164 ×2

== ENCOUNTER → 2020-08-06 | Day surgery (SDC) | payer MEDICARE ==
[2020-08-01 13:31] LABS: BASOPHILS # (AUTO) 0.1 (0.0-0.1); BASOPHILS % 0.6 % (0.0-1.0); EOSINOPHILS # (AUTO) 0.2 (0.0-0.4); EOSINOPHILS % 1.9 % (0.0-6.0); HEMATOCRIT 42.7 % (38.2-49.6); HEMOGLOBIN 14.3 g/dL (14.0-18.0); LYMPHOCYTES # (AUTO) 2.1 (1.0-3.2); LYMPHOCYTES % 18.1 % (18.0-39.1); MEAN CORPUSCULAR HEMOGLOBIN 30.9 pg (28-32); MEAN CORPUSCULAR HGB CONC 33.5 g/dL (31-35); MEAN CORPUSCULAR VOLUME 92.2 fL (81-99); MONOCYTES # (AUTO) 0.9 (0.2-0.8); MONOCYTES % 7.2 % (4.4-11.3); NEUTROPHILS # (AUTO) 8.5 (2.1-6.9); NEUTROPHILS % 71.8 % (38.7-80.0); PLATELET COUNT 281 x10e3/uL (140-360); RED BLOOD COUNT 4.63 x10e6/uL (4.3-5.7); RED CELL DISTRIBUTION WIDTH 13.4 % (11.7-14.4)
[2020-08-01 13:49] LABS: ANION GAP 16.4 mmol/L (8-16); BLOOD UREA NITROGEN 13 mg/dL (7-26); BUN/CREATININE RATIO 16 (6-25); CALCIUM 9.2 mg/dL (8.4-10.2); CARBON DIOXIDE 26 mmol/L (22-29); CHLORIDE 99 mmol/L (98-107); EST GLOMERULAR FILTRATION RATE > 60 ML/MIN (60-); GLUCOSE 106 mg/dL (74-118); POTASSIUM 4.4 mmol/L (3.5-5.1); SODIUM 137 mmol/L (136-145)
[~2020-08-06] MED LIST changes: +B&O 60MG R/S 60 MG SUPP PR ONE; +CLOPIDOGREL75 MG PO; +DEXAMETHASONE SOD PHOS INJ 4 MG/ML VIAL ONE; +FENTANYL CITRATE/PF 100MCG/2 ML INJ ONE; +GENTAMICIN 80MG/NS 100 ML 200 ML IV ONE; +IOPAMIDOL 300MG/ML 50ML INFUS..BTL IV ONE; +LIDOCAINE HCL 2% LOCAL INJ 5 ML SDV VIAL INJ ONE; +MIDAZOLAM HCL 2 MG/2 ML VIAL ONE; +ONDANSETRON HCL INJ 2MG/ML 2ML 2 MG/ML VIAL ONE; +PROPOFOL IV EMULSION 10 MG/ML 20 ML VIAL ONE; +SEVOFLURANE INHAL SOLN 250 ML PEN BTL ONE
[2020-08-06 12:13] VITALS: BP 155/77
== END | disposition home or self-care (01) ==
LOC: OR 09:04
PROVIDERS: ATTEND Urology
DX: N40.1 Benign prostatic hyperplasia with lower urinary tract symptoms (principal); N13.8 Other obstructive and reflux uropathy; G47.33 Obstructive sleep apnea (adult) (pediatric); R39.14 Feeling of incomplete bladder emptying; N39.0 Urinary tract infection, site not specified; Z98.890 Other specified postprocedural states; N32.89 Other specified disorders of bladder; I10 Essential (primary) hypertension; E11.9 Type 2 diabetes mellitus without complications; I49.3 Ventricular premature depolarization; K21.9 Gastro-esophageal reflux disease without esophagitis; I25.10 Atherosclerotic heart disease of native coronary artery without angina pectoris; F41.9 Anxiety disorder, unspecified; Z88.1 Allergy status to other antibiotic agents; Z88.0 Allergy status to penicillin; Z01.810 Encounter for preprocedural cardiovascular examination; Z01.812 Encounter for preprocedural laboratory examination; Z01.818 Encounter for other preprocedural examination; Z20.822 Contact with and (suspected) exposure to COVID-19; Z79.02 Long term (current) use of antithrombotics/antiplatelets; Z79.84 Long term (current) use of oral hypoglycemic drugs; Z95.5 Presence of coronary angioplasty implant and graft
CPT/HCPCS: 52005; C9740; 36415; 71046; 74420; 80048; 82948; 85025; 93005; C1758; J1100; J1580; J2001; J2250; J2405; J3010; L8699; U0002

== ENCOUNTER 2020-09-16 06:59 | Emergency (ER) | payer MEDICARE ==
[~2020-09-16] VITALS: Ht 177.8 cm; Wt 111.1 kg
[~2020-09-16 06:59] MED LIST changes: -B&O 60MG R/S 60 MG SUPP PR ONE; -DEXAMETHASONE SOD PHOS INJ 4 MG/ML VIAL ONE; -FENTANYL CITRATE/PF 100MCG/2 ML INJ ONE; -GENTAMICIN 80MG/NS 100 ML 200 ML IV ONE; -IOPAMIDOL 300MG/ML 50ML INFUS..BTL IV ONE; -LIDOCAINE HCL 2% LOCAL INJ 5 ML SDV VIAL INJ ONE; -MIDAZOLAM HCL 2 MG/2 ML VIAL ONE; -ONDANSETRON HCL INJ 2MG/ML 2ML 2 MG/ML VIAL ONE; -PROPOFOL IV EMULSION 10 MG/ML 20 ML VIAL ONE; -SEVOFLURANE INHAL SOLN 250 ML PEN BTL ONE
[2020-09-16 07:41] LABS: BASOPHILS # (AUTO) 0.1 (0.0-0.1); BASOPHILS % 0.7 % (0.0-1.0); EOSINOPHILS # (AUTO) 0.3 (0.0-0.4); EOSINOPHILS % 2.3 % (0.0-6.0); HEMATOCRIT 40.9 % (38.2-49.6); HEMOGLOBIN 13.9 g/dL (14.0-18.0); LYMPHOCYTES # (AUTO) 2.5 (1.0-3.2); LYMPHOCYTES % 21.4 % (18.0-39.1); MEAN CORPUSCULAR HEMOGLOBIN 31.7 pg (28-32); MEAN CORPUSCULAR VOLUME 93.2 fL (81-99); MONOCYTES # (AUTO) 0.9 (0.2-0.8); MONOCYTES % 7.7 % (4.4-11.3); NEUTROPHILS # (AUTO) 7.9 (2.1-6.9); NEUTROPHILS % 67.3 % (38.7-80.0); PLATELET COUNT 281 x10e3/uL (140-360); RED BLOOD COUNT 4.39 x10e6/uL (4.3-5.7); RED CELL DISTRIBUTION WIDTH 13.8 % (11.7-14.4)
[2020-09-16 09:11] LABS: ALANINE AMINOTRANSFERASE 6 IU/L (0-55); ALBUMIN 3.6 g/dL (3.5-5.0); ALBUMIN/GLOBULIN RATIO 1.1 (0.8-2.0); ALKALINE PHOSPHATASE 102 IU/L (40-150); ANION GAP 14.5 mmol/L (8-16); BLOOD UREA NITROGEN 12 mg/dL (7-26); BUN/CREATININE RATIO 18 (6-25); CALCIUM 8.7 mg/dL (8.4-10.2); CARBON DIOXIDE 25 mmol/L (22-29); CHLORIDE 99 mmol/L (98-107); CREATININE, SERUM 0.68 mg/dL (0.72-1.25); EST GLOMERULAR FILTRATION RATE > 60 ML/MIN (60-); GLUCOSE 118 mg/dL (74-118); POTASSIUM 4.5 mmol/L (3.5-5.1); SODIUM 134 mmol/L (136-145)
[2020-09-16 09:21] VITALS: BP 112/66
== END 2020-09-16 09:22 | disposition home or self-care (01) ==
LOC: ER 07:22
DX: Z01.30 Encounter for examination of blood pressure without abnormal findings (principal); I10 Essential (primary) hypertension; E11.9 Type 2 diabetes mellitus without complications; G40.909 Epilepsy, unspecified, not intractable, without status epilepticus; E78.5 Hyperlipidemia, unspecified; G47.30 Sleep apnea, unspecified; G47.419 Narcolepsy without cataplexy; Z95.5 Presence of coronary angioplasty implant and graft
CPT/HCPCS: 36415; 80053; 85025; 93005; 99284

== ENCOUNTER → 2020-10-16 | Day surgery (SDC) | payer MEDICARE ==
[~2020-10-16] MED LIST changes: +AMLODIPINE BESYL5 MG PO; +LIDOCAINE HCL 2% LOCAL INJ 5 ML SDV VIAL INJ ONE; +PROPOFOL IV EMULSION 10 MG/ML 20 ML VIAL ONE; +RESTASIS1 EACH OP
[2020-10-16 11:00] VITALS: BP 139/83
== END | disposition home or self-care (01) ==
LOC: OR 07:23
PROVIDERS: ATTEND Internal Medicine Gastroenterology
DX: K59.00 Constipation, unspecified (principal); D12.2 Benign neoplasm of ascending colon; K29.50 Unspecified chronic gastritis without bleeding; K44.9 Diaphragmatic hernia without obstruction or gangrene; K57.30 Diverticulosis of large intestine without perforation or abscess without bleeding; K64.8 Other hemorrhoids; G47.33 Obstructive sleep apnea (adult) (pediatric); I10 Essential (primary) hypertension; E11.9 Type 2 diabetes mellitus without complications; E66.9 Obesity, unspecified; G40.909 Epilepsy, unspecified, not intractable, without status epilepticus; I25.10 Atherosclerotic heart disease of native coronary artery without angina pectoris; I25.2 Old myocardial infarction; Z88.1 Allergy status to other antibiotic agents; Z88.0 Allergy status to penicillin; Z88.8 Allergy status to other drugs, medicaments and biological substances; Z01.812 Encounter for preprocedural laboratory examination; Z20.822 Contact with and (suspected) exposure to COVID-19; Z79.02 Long term (current) use of antithrombotics/antiplatelets; Z79.84 Long term (current) use of oral hypoglycemic drugs; Z68.34 Body mass index [BMI] 34.0-34.9, adult; Z95.5 Presence of coronary angioplasty implant and graft
CPT/HCPCS: 36415; 43239; 45385; 82948; 88305; 88312; J2001; J2704; U0002; 43235

== ENCOUNTER → 2020-12-08 | Outpatient (CLI) | payer MEDICARE ==
[~2020-12-08] MED LIST changes: -LIDOCAINE HCL 2% LOCAL INJ 5 ML SDV VIAL INJ ONE; -PROPOFOL IV EMULSION 10 MG/ML 20 ML VIAL ONE
== END ==
LOC: RAD 09:51
PROVIDERS: ATTEND Family Medicine
DX: R05 Cough (principal)
CPT/HCPCS: 71046

== ENCOUNTER → 2022-06-01 | Day surgery (SDC) | payer MEDICARE ==
[2022-05-28 12:52] LABS: BASOPHILS # (AUTO) 0.1 (0.0-0.1); BASOPHILS % 0.8 % (0.0-1.0); EOSINOPHILS # (AUTO) 0.3 (0.0-0.4); EOSINOPHILS % 2.3 % (0.0-6.0); HEMATOCRIT 42.3 % (38.2-49.6); HEMOGLOBIN 13.9 g/dL (14.0-18.0); LYMPHOCYTES # (AUTO) 1.8 (1.0-3.2); LYMPHOCYTES % 14.1 % (18.0-39.1); MEAN CORPUSCULAR HEMOGLOBIN 32.6 pg (28-32); MEAN CORPUSCULAR HGB CONC 32.9 g/dL (31-35); MEAN CORPUSCULAR VOLUME 99.3 fL (81-99); MONOCYTES # (AUTO) 0.9 (0.2-0.8); MONOCYTES % 7.4 % (4.4-11.3); NEUTROPHILS # (AUTO) 9.4 (2.1-6.9); NEUTROPHILS % 74.8 % (38.7-80.0); PLATELET COUNT 246 x10e3/uL (140-360); RED BLOOD COUNT 4.26 x10e6/uL (4.3-5.7); RED CELL DISTRIBUTION WIDTH 12.6 % (11.7-14.4)
[2022-05-28 13:14] LABS: ALANINE AMINOTRANSFERASE < 6 IU/L (0-55); ALBUMIN 3.9 g/dL (3.5-5.0); ALBUMIN/GLOBULIN RATIO 1.1 (0.8-2.0); ALKALINE PHOSPHATASE 113 IU/L (40-150); ANION GAP 16.1 mmol/L (8-16); BLOOD UREA NITROGEN 14 mg/dL (7-26); BUN/CREATININE RATIO 18 (6-25); CALCIUM 8.9 mg/dL (8.4-10.2); CARBON DIOXIDE 23 mmol/L (22-29); CHLORIDE 99 mmol/L (98-107); CREATININE, SERUM 0.78 mg/dL (0.72-1.25); GLUCOSE 124 mg/dL (74-118); POTASSIUM 4.1 mmol/L (3.5-5.1); SODIUM 134 mmol/L (136-145)
[~2022-06-01] VITALS: Ht 177.8 cm; Wt 108.9 kg
[2022-06-01] VITALS (11 sets, daily range): BP systolic 110–134; BP diastolic 41–57
[~2022-06-01] MED LIST changes: +DIPHENHYDRAMINE HCL 25 MG CAP ONE; +FENTANYL CITRATE/PF 100MCG/2 ML INJ ONE; +HEPARIN SOD (PORCINE) 1000 UNIT/ML 30ML ONE; +HEPARIN SOD/SOD CHLORIDE 2,000 ML ONE; +IOPAMIDOL 370 MG/ML 100 ML INFUS..BTL INJ ONE; +LIDOCAINE HCL 2% LOCAL 20 ML VIAL ONE; +MIDAZOLAM HCL 2 MG/2 ML VIAL ONE; +SODIUM CHLORIDE 0.9% 1000ML 1,000 ML ONE; +VERAPAMIL HCL 2.5 MG/ML 2 ML VIAL ONE
== END | disposition home or self-care (01) ==
LOC: CATH LAB 13:07
PROVIDERS: ATTEND Internal Medicine Interventional Cardiology
DX: I25.110 Atherosclerotic heart disease of native coronary artery with unstable angina pectoris (principal); R94.39 Abnormal result of other cardiovascular function study; I25.2 Old myocardial infarction; I10 Essential (primary) hypertension; E78.2 Mixed hyperlipidemia; Z95.5 Presence of coronary angioplasty implant and graft; E66.9 Obesity, unspecified; R60.0 Localized edema; Z88.0 Allergy status to penicillin; Z88.8 Allergy status to other drugs, medicaments and biological substances; Z88.1 Allergy status to other antibiotic agents; Z01.812 Encounter for preprocedural laboratory examination; Z20.822 Contact with and (suspected) exposure to COVID-19; Z79.02 Long term (current) use of antithrombotics/antiplatelets; Z79.84 Long term (current) use of oral hypoglycemic drugs; Z79.899 Other long term (current) drug therapy; Z68.37 Body mass index [BMI] 37.0-37.9, adult; Z86.73 Personal history of transient ischemic attack (TIA), and cerebral infarction without residual deficits; Z82.49 Family history of ischemic heart disease and other diseases of the circulatory system; Z82.3 Family history of stroke
CPT/HCPCS: 0223U; 36415 ×2; 80053; 82948; 85025; 93005; 93458; C1725; J1644; J2001; J2250; J3010; J7030; Q9967; 99152; 99153

== ENCOUNTER 2024-03-09 07:07 | Observation (INO) | payer MEDICARE ==
[~2024-03-09] VITALS: Ht 177.8 cm; Wt 102.1 kg
[2024-03-09] VITALS (9 sets, daily range): BP systolic 110–132; BP diastolic 47–59; PULSE 51–58; RESP 15–18; TEMP 97–208.2; O2SAT 100
[~2024-03-09 07:07] MED LIST changes: +ACETAMINOPHEN325 M1 PO; +ASPIRIN81 MG PO; -DIPHENHYDRAMINE HCL 25 MG CAP ONE; -FENTANYL CITRATE/PF 100MCG/2 ML INJ ONE; +FLOMAX0.4 MG PO; -HEPARIN SOD (PORCINE) 1000 UNIT/ML 30ML ONE; -HEPARIN SOD/SOD CHLORIDE 2,000 ML ONE; -IOPAMIDOL 370 MG/ML 100 ML INFUS..BTL INJ ONE; -LIDOCAINE HCL 2% LOCAL 20 ML VIAL ONE; -MIDAZOLAM HCL 2 MG/2 ML VIAL ONE; -SODIUM CHLORIDE 0.9% 1000ML 1,000 ML ONE; -VERAPAMIL HCL 2.5 MG/ML 2 ML VIAL ONE
[2024-03-09] MEDS ORDERED: LINZESS145 MCG PO (07:38)
[2024-03-09 07:52] LABS: BASOPHILS # (AUTO) 0.1 (0.0-0.1); BASOPHILS % 0.9 % (0.0-1.0); EOSINOPHILS # (AUTO) 0.4 (0.0-0.4); EOSINOPHILS % 3.4 % (0.0-6.0); HEMATOCRIT 40.8 % (38.2-49.6); HEMOGLOBIN 13.9 g/dL (14.0-18.0); LYMPHOCYTES # (AUTO) 2.1 (1.0-3.2); LYMPHOCYTES % 20.4 % (18.0-39.1); MEAN CORPUSCULAR HEMOGLOBIN 34.2 pg (28-32); MEAN CORPUSCULAR HGB CONC 34.1 g/dL (31-35); MEAN CORPUSCULAR VOLUME 100.2 fL (81-99); MONOCYTES # (AUTO) 0.9 (0.2-0.8); MONOCYTES % 8.9 % (4.4-11.3); NEUTROPHILS # (AUTO) 6.8 (2.1-6.9); NEUTROPHILS % 65.6 % (38.7-80.0); PLATELET COUNT 235 x10e3/uL (140-360); RED BLOOD COUNT 4.07 x10e6/uL (4.3-5.7); RED CELL DISTRIBUTION WIDTH 12.8 % (11.7-14.4)
[2024-03-09 08:53] LABS: ALBUMIN 3.6 g/dL (3.5-5.0); ALBUMIN/GLOBULIN RATIO 1.3 (0.8-2.0); ANION GAP 12.9 mmol/L (8-16); BILIRUBIN,TOTAL 0.4 mg/dL (0.2-1.2); CALCIUM 8.9 mg/dL (8.4-10.2); CREATININE, SERUM 0.65 mg/dL (0.72-1.25); POTASSIUM 3.9 mmol/L (3.5-5.1); TOTAL PROTEIN 6.4 g/dL (6.5-8.1)
[2024-03-09] MEDS ORDERED: IOPAMIDOL 370 MG/ML 100 ML INFUS..BTL INJ ONE (09:10)
[2024-03-09 10:46] LABS: INR 0.92; PROTHROMBIN TIME 12.8 seconds (11.9-14.5)
[2024-03-09 10:47] LABS: PARTIAL THROMBOPLASTIN TIME 29.7 seconds (23.8-35.5)
[2024-03-09] MEDS ORDERED: SODIUM CHLORIDE FLUSH 10 ML SYR INJ PRN (11:00)
[2024-03-09] MEDS ORDERED: ONDANSETRON HCL INJ 2MG/ML 2ML 2 MG/ML VIAL IV PRN (11:00)
[2024-03-09] MEDS ORDERED: ACETAMINOPHEN 325 MG TAB PO PRN (12:15)
[2024-03-09] MEDS ORDERED: ZINC SULFATE 220 MG CAP PO PRN (12:15)
[2024-03-09] MEDS ORDERED: NITROGLYCERIN 0.4 MG SUBL SL PRN (12:15)
[2024-03-09 12:38] LABS: CLARITY,URINE CLEAR (CLEAR); COLOR,URINE YELLOW (YELLOW); PH,URINE 7.5 (5 - 7)
[2024-03-09 12:39] LABS: BILIRUBIN,URINE NEGATIVE (NEGATIVE); GLUCOSE, URINE NEGATIVE (NEGATIVE); KETONES,URINE NEGATIVE (NEGATIVE); LEUKOCYTE ESTERASE ,URINE NEGATIVE (NEGATIVE); NITRITE,URINE NEGATIVE (NEGATIVE); PROTEIN,URINE DIPSTICK NEGATIVE (NEGATIVE); URINE UROBILINOGEN 0.2 mg/dL (0.2 - 1)
[2024-03-09] MEDS: ASPIRIN 81 MG CHEW TAB PO ONE (13:01)
[2024-03-09 13:10] LABS: RBC,URINE 0-5 /HPF (0-5); WBC,URINE (MAN) 0-5 /HPF (0-5)
[2024-03-09 13:11] LABS: BACTERIA,URINE FEW /HPF; EPITHELIAL CELLS,URINE FEW /LPF
[2024-03-09 16:58] LABS: CREATINE KINASE 41 IU/L (30-200)
[2024-03-09] MEDS: PHENOBARBITAL 30 MG TAB PO SCH (16:58)
[2024-03-09] MEDS: PROPRANOLOL HCL 40 MG TAB PO SCH (16:59)
[2024-03-09] MEDS ORDERED: PHENOBARBITAL 32.4 MG PO SCH (17:00)
[2024-03-09] MEDS ORDERED: PROPRANOLOL 40 MG PO SCH (17:00)
[2024-03-09] MEDS: PANTOPRAZOLE SODIUM 20 MG TABLET.DR PO SCH (17:01)
[2024-03-09] MEDS: LEVETIRACETAM 500 MG TAB PO SCH (17:02)
[2024-03-09 17:11] LABS: TROPONIN I < 0.001 ng/mL (0-0.300)
[2024-03-09] MEDS: MELATONIN 3 MG TAB PO SCH (21:18)
[2024-03-09] MEDS: TAMSULOSIN HCL 0.4 MG CAP PO SCH (21:19)
[2024-03-09] MEDS: ASPIRIN 81 MG CHEW TAB PO SCH (21:19)
[2024-03-10 03:23] VITALS: BP 117/55; PULSE 58; RESP 18; TEMP 98.5; O2SAT 100
[2024-03-10 07:53] LABS: BASOPHILS # (AUTO) 0.1 (0.0-0.1); BASOPHILS % 0.7 % (0.0-1.0); EOSINOPHILS # (AUTO) 0.4 (0.0-0.4); EOSINOPHILS % 4.5 % (0.0-6.0); HEMATOCRIT 34.7 % (38.2-49.6); HEMOGLOBIN 11.8 g/dL (14.0-18.0); LYMPHOCYTES # (AUTO) 2.4 (1.0-3.2); LYMPHOCYTES % 26.7 % (18.0-39.1); MEAN CORPUSCULAR HEMOGLOBIN 34.1 pg (28-32); MEAN CORPUSCULAR VOLUME 100.3 fL (81-99); MONOCYTES # (AUTO) 0.8 (0.2-0.8); MONOCYTES % 8.6 % (4.4-11.3); NEUTROPHILS # (AUTO) 5.3 (2.1-6.9); NEUTROPHILS % 58.7 % (38.7-80.0); PLATELET COUNT 194 x10e3/uL (140-360); RED BLOOD COUNT 3.46 x10e6/uL (4.3-5.7); WHITE BLOOD COUNT 8.94 x10e3/uL (4.8-10.8)
[2024-03-10 08:00] VITALS: BP 133/59; PULSE 58; RESP 18; TEMP 98.5; O2SAT 100
[2024-03-10 08:22] LABS: ALBUMIN 3.4 g/dL (3.5-5.0); ALBUMIN/GLOBULIN RATIO 1.3 (0.8-2.0); ANION GAP 12.6 mmol/L (8-16); BILIRUBIN,TOTAL 0.7 mg/dL (0.2-1.2); CALCIUM 8.9 mg/dL (8.4-10.2); CREATININE, SERUM 0.65 mg/dL (0.72-1.25); POTASSIUM 3.6 mmol/L (3.5-5.1)
[2024-03-10 08:46] LABS: TROPONIN I 0.008 ng/mL (0-0.300)
[2024-03-10 09:33] VITALS: BP 133/59; PULSE 73; RESP 16; TEMP 97.6; O2SAT 98
[2024-03-10] MEDS: FUROSEMIDE 40 MG TAB PO SCH (09:35)
[2024-03-10] MEDS: LINACLOTIDE 145 MCG CAPSULE PO SCH (09:35)
[2024-03-10] MEDS: GLIPIZIDE 5 MG TAB PO SCH (09:36)
[2024-03-10] MEDS: ATORVASTATIN 20 MG TAB PO SCH (09:36)
[2024-03-10] MEDS: CLOPIDOGREL BISULFATE 75 MG TAB PO SCH (09:36)
[2024-03-10] MEDS: CYANOCOBALAMIN 1,000 MCG TAB PO SCH (09:36)
[2024-03-10] MEDS: AMLODIPINE BESYLATE 10 MG TAB PO SCH (09:37)
[2024-03-10] MEDS: MODAFINIL 100 MG TAB PO SCH (09:41)
[2024-03-10] MEDS: POTASSIUM CHLORIDE 10MEQ EA PO SCH (09:44)
[2024-03-10 12:10] VITALS: BP 118/52; PULSE 56; RESP 15; TEMP 97.9; O2SAT 100
[2024-03-10] MEDS ORDERED: BISACODYL 10 MG SUPP PR ONE (13:00)
[2024-03-10] MEDS: BISACODYL 10 MG SUPP PR ONE (13:29)
[2024-03-10] MEDS: MINERAL OIL 132 ML BTL PR ONE (16:09)
[2024-03-10 16:15] VITALS: BP 125/54; PULSE 61; RESP 18; TEMP 97.8; O2SAT 98
[2024-03-10 17:30] VITALS: BP 125/54; PULSE 61
== END 2024-03-10 19:20 | disposition home or self-care (01) ==
LOC: ER 07:18 → ERHOLD 10:57 → MED/SURG 13:20
PROVIDERS: ADMIT Internal Medicine; ATTEND Internal Medicine
DX: R00.2 Palpitations (principal); K59.00 Constipation, unspecified; I48.0 Paroxysmal atrial fibrillation; Z45.09 Encounter for adjustment and management of other cardiac device; I49.1 Atrial premature depolarization; I10 Essential (primary) hypertension; E78.00 Pure hypercholesterolemia, unspecified; E11.9 Type 2 diabetes mellitus without complications; Z79.84 Long term (current) use of oral hypoglycemic drugs; I25.10 Atherosclerotic heart disease of native coronary artery without angina pectoris; Z95.5 Presence of coronary angioplasty implant and graft; Z95.818 Presence of other cardiac implants and grafts; K21.9 Gastro-esophageal reflux disease without esophagitis; K50.90 Crohn's disease, unspecified, without complications; G40.909 Epilepsy, unspecified, not intractable, without status epilepticus; G47.419 Narcolepsy without cataplexy; M19.91 Primary osteoarthritis, unspecified site; M47.816 Spondylosis without myelopathy or radiculopathy, lumbar region; N40.0 Benign prostatic hyperplasia without lower urinary tract symptoms; Z79.899 Other long term (current) drug therapy; Z79.02 Long term (current) use of antithrombotics/antiplatelets
CPT/HCPCS: 36415 ×2; 74177; 80053 ×2; 81001; 82550 ×2; 83690; 83880; 84443; 84484 ×2; 85025 ×2; 85610; 85730; 93005; 99284; G0378 ×2; Q9967; S0164 ×2

== ENCOUNTER 2024-12-01 13:23 | Emergency (ER) | payer MEDICARE ==
[~2024-12-01] VITALS: Ht 177.8 cm; Wt 85.7 kg
[~2024-12-01 13:23] MED LIST changes: +LINZESS145 MCG PO
[2024-12-01 14:26] VITALS: TEMP 98.3
[2024-12-01 14:49] LABS: BASOPHILS % 0.4 % (0.0-1.0); EOSINOPHILS % 2.1 % (0.0-6.0); LYMPHOCYTES % 11.8 % (18.0-39.1); MONOCYTES % 8.2 % (4.4-11.3); NEUTROPHILS % 76.9 % (38.7-80.0); RED CELL DISTRIBUTION WIDTH 13.0 % (11.7-14.4)
[2024-12-01 15:10] LABS: EST GLOMERULAR FILTRATION RATE 90.0 ML/MIN (>=60)
[2024-12-01] MEDS ORDERED: IOPAMIDOL 370 MG/ML 100 ML INFUS..BTL INJ ONE (15:30)
[2024-12-01] MEDS: SODIUM CHLORIDE 0.9% 1000ML 1,000 ML IV ONE (15:34)
[2024-12-01] MEDS: ONDANSETRON HCL INJ 2MG/ML 2ML 2 MG/ML VIAL IV STA (15:34)
[2024-12-01] MEDS ORDERED: GOLYTELY SOLU4000 M1 PO (16:15)
[2024-12-01 16:50] VITALS: PULSE 72; RESP 16; O2SAT 98
== END 2024-12-01 16:50 | disposition home or self-care (01) ==
LOC: ER 13:33
DX: R14.0 Abdominal distension (gaseous) (principal); K59.00 Constipation, unspecified; I10 Essential (primary) hypertension; I48.91 Unspecified atrial fibrillation; I25.10 Atherosclerotic heart disease of native coronary artery without angina pectoris; G40.909 Epilepsy, unspecified, not intractable, without status epilepticus; E78.5 Hyperlipidemia, unspecified; G47.30 Sleep apnea, unspecified; G47.419 Narcolepsy without cataplexy; Z95.5 Presence of coronary angioplasty implant and graft; Z87.19 Personal history of other diseases of the digestive system
CPT/HCPCS: 36415; 74177; 80053; 83690; 85025; 93005; 99284; J7030; Q9967; J2405

== ENCOUNTER 2024-12-31 12:13 | Inpatient (IN) | payer MEDICARE ==
[2024-12-31] VITALS (7 sets, daily range): BP systolic 118–133; BP diastolic 54–76; PULSE 72–96; RESP 13–20; TEMP 98–98.2; O2SAT 97–100
[~2024-12-31] VITALS: Ht 177.8 cm; Wt 79.0 kg
[~2024-12-31 12:13] MED LIST changes: +GOLYTELY SOLU4000 M1 PO
[2024-12-31] MEDS: SODIUM CHLORIDE 0.9% 500ML 500 ML IV ONE (13:00)
[2024-12-31] MEDS: ONDANSETRON HCL INJ 2MG/ML 2ML 2 MG/ML VIAL IV STA (13:00)
[2024-12-31 13:21] LABS: BASOPHILS % 0.5 % (0.0-1.0); EOSINOPHILS % 4.0 % (0.0-6.0); LYMPHOCYTES % 21.1 % (18.0-39.1); MONOCYTES % 9.0 % (4.4-11.3); NEUTROPHILS % 64.7 % (38.7-80.0); RED CELL DISTRIBUTION WIDTH 13.7 % (11.7-14.4)
[2024-12-31 13:50] LABS: INR 0.92
[2024-12-31 13:59] LABS: EST GLOMERULAR FILTRATION RATE 88.0 ML/MIN (>=60)
[2024-12-31] MEDS: PHENOBARBITAL SOD 65 MG/ML VIAL IV ONE (14:02)
[2024-12-31 14:55] LABS: LEUKOCYTE ESTERASE ,URINE NEGATIVE (NEGATIVE); PROTEIN,URINE DIPSTICK 2+ (NEGATIVE); URINE UROBILINOGEN 0.2 mg/dL (0.2 - 1)
[2024-12-31] MEDS ORDERED: LORAZEPAM INJ 2 MG/ML VIAL ONE (16:11)
[2024-12-31] MEDS ORDERED: ZIPRASIDONE 20 MG VIAL IM ONE (16:11)
[2024-12-31] MEDS: LORAZEPAM INJ 2 MG/ML VIAL IV ONE (16:13)
[2024-12-31] MEDS: ZIPRASIDONE 20 MG VIAL IM STA (16:22)
[2024-12-31] MEDS: SODIUM CHLORIDE 0.9% 1000ML 1,000 ML IV SCH (16:29)
[2024-12-31] MEDS: LEVETIRACETAM 1500 MG/100 ML 100 ML IV ONE (17:38)
[2024-12-31] MEDS: ZIPRASIDONE 20 MG VIAL IM PRN (19:58)
[2024-12-31] MEDS: LORAZEPAM INJ 2 MG/ML VIAL IV PRN (20:36)
[2025-01-01] VITALS (17 sets, daily range): BP systolic 106–149; BP diastolic 42–94; PULSE 60–103; RESP 14–24; TEMP 97.8–98.4; O2SAT 95–100
[2025-01-01 05:23] LABS: BASOPHILS % 0.4 % (0.0-1.0); EOSINOPHILS % 0.6 % (0.0-6.0); LYMPHOCYTES % 11.8 % (18.0-39.1); MONOCYTES % 10.7 % (4.4-11.3); NEUTROPHILS % 76.0 % (38.7-80.0); RED CELL DISTRIBUTION WIDTH 13.7 % (11.7-14.4)
[2025-01-01 06:04] LABS: EST GLOMERULAR FILTRATION RATE 96.0 ML/MIN (>=60)
[2025-01-01] MEDS: LEVETIRACETAM 1500 MG/100 ML 100 ML IV ONE (14:54)
[2025-01-01] MEDS ORDERED: WATER STERILE 10 ML VIAL INJ SCH (17:45)
[2025-01-01] MEDS: LEVETIRACETAM 500 MG TAB PO SCH (20:06)
[2025-01-01] MEDS: TAMSULOSIN HCL 0.4 MG CAP PO SCH (20:06)
[2025-01-02] VITALS (24 sets, daily range): BP systolic 113–157; BP diastolic 51–105; PULSE 66–117; RESP 14–25; TEMP 98.2–100.3; O2SAT 95–100
[2025-01-02] MEDS: CLOPIDOGREL BISULFATE 75 MG TAB PO SCH (08:14)
[2025-01-02] MEDS: ATORVASTATIN 20 MG TAB PO SCH (08:14)
[2025-01-02] MEDS: FUROSEMIDE 40 MG TAB PO SCH (08:14)
[2025-01-02] MEDS: AMLODIPINE BESYLATE 10 MG TAB PO SCH (08:15)
[2025-01-02] MEDS: ACETAMINOPHEN 325 MG TAB PO PRN (20:57)
[2025-01-03] VITALS (26 sets, daily range): BP systolic 113–156; BP diastolic 56–116; PULSE 77–129; RESP 15–32; TEMP 98.2–98.7; O2SAT 97–100
[2025-01-03] MEDS ORDERED: LABETALOL HCL 5 MG/ML 20ML VIAL IV PRN (01:30)
[2025-01-03] MEDS ORDERED: POLYETHYLENE GLYCOL 3350 17 GM PACK PO PRN (01:30)
[2025-01-03 05:28] LABS: BASOPHILS % 0.2 % (0.0-1.0); EOSINOPHILS % 0.1 % (0.0-6.0); LYMPHOCYTES % 6.4 % (18.0-39.1); MONOCYTES % 11.4 % (4.4-11.3); NEUTROPHILS % 81.0 % (38.7-80.0); RED CELL DISTRIBUTION WIDTH 13.6 % (11.7-14.4)
[2025-01-03] MEDS: THIAMINE HCL INJ 100 MG/ML 2ML VIAL IV SCH (05:41)
[2025-01-03 06:01] LABS: CHOL/HDL RATIO 1.8 (3.9-4.7); LDL CHOLESTEROL 36.0 MG/DL (60-130); PHOSPHORUS 2.0 MG/DL (2.3-4.7)
[2025-01-03] MEDS: DOCUSATE SODIUM 100 MG CAP PO SCH (07:31)
[2025-01-03 07:45] LABS: EST GLOMERULAR FILTRATION RATE 98.0 ML/MIN (>=60)
[2025-01-03] MEDS ORDERED: POTASSIUM CHLORIDE 10MEQ EA PO ONE (08:45)
[2025-01-03] MEDS: POTASSIUM PHOSPHATE 15 MM in SODIUM CHLORIDE 0.9% 250ML 250 ML IV SCH (09:10)
[2025-01-03] MEDS: POTASSIUM BICARBONATE/CIT AC 20 MEQ TABLET.EFF PO SCH (10:52)
[2025-01-03] MEDS: OLANZAPINE 5 MG TAB PO SCH (19:42)
[2025-01-04] VITALS (24 sets, daily range): BP systolic 121–151; BP diastolic 56–93; PULSE 64–121; RESP 15–34; TEMP 97.8–98.9; O2SAT 98–100
[2025-01-04 05:18] LABS: BASOPHILS % 0.4 % (0.0-1.0); EOSINOPHILS % 2.4 % (0.0-6.0); LYMPHOCYTES % 14.1 % (18.0-39.1); MONOCYTES % 10.9 % (4.4-11.3); NEUTROPHILS % 71.3 % (38.7-80.0); RED CELL DISTRIBUTION WIDTH 13.7 % (11.7-14.4)
[2025-01-04 05:43] LABS: EST GLOMERULAR FILTRATION RATE 101.0 ML/MIN (>=60); PHOSPHORUS 2.9 MG/DL (2.3-4.7)
[2025-01-04] MEDS: MAGNESIUM SULF 1GRAM/DEXTROSE 100 ML IV ONE (09:20)
[2025-01-04] MEDS: MAGNESIUM SULFATE 2GM/50ML 50 ML IV ONE (09:21)
[2025-01-04] MEDS: VALPROATE SOD IV ONE (11:41)
[2025-01-04] MEDS: SODIUM CHLORIDE 0.9% IV ONE (11:41)
[2025-01-04] MEDS: POTASSIUM CHLORIDE 10MEQ EA PO SCH (11:48)
[2025-01-04] MEDS ORDERED: NITROGLYCERIN 0.4 MG SUBL SL PRN (18:00)
[2025-01-04] MEDS ORDERED: ZINC SULFATE 220 MG CAP PO PRN (18:00)
[2025-01-04] MEDS: PROPRANOLOL HCL 40 MG TAB PO SCH (18:09)
[2025-01-04] MEDS: CYANOCOBALAMIN 1,000 MCG TAB PO SCH (18:09)
[2025-01-04] MEDS: MODAFINIL 100 MG TAB PO SCH (18:09)
[2025-01-04] MEDS: GLIPIZIDE 5 MG TAB ER PO SCH (18:10)
[2025-01-04] MEDS: MULTIVITAMINS/MINERALS TAB PO SCH (19:38)
[2025-01-04] MEDS: PYRIDOXINE HCL 50 MG TAB PO SCH (19:38)
[2025-01-04] MEDS: ASPIRIN 81 MG CHEW TAB PO SCH (20:02)
[2025-01-04] MEDS: MELATONIN 3 MG TAB PO SCH (20:03)
[2025-01-04] MEDS: VALPROATE SOD INJ 500 MG in SODIUM CHLORIDE 0.9% 100 ML IV SCH (20:04)
[2025-01-04 23:10] LABS: EST GLOMERULAR FILTRATION RATE 96.0 ML/MIN (>=60)
[2025-01-05] VITALS (27 sets, daily range): BP systolic 87–153; BP diastolic 46–88; PULSE 25–112; RESP 21–36; TEMP 97.6–99; O2SAT 97–100
[2025-01-05] MEDS: POTASSIUM CHLORIDE 10MEQ EA PO SCH (09:00)
[2025-01-05] MEDS: LINACLOTIDE 145 MCG CAPSULE PO SCH (17:24)
[2025-01-06] VITALS (12 sets, daily range): BP systolic 93–134; BP diastolic 46–79; PULSE 74–92; RESP 15–25; TEMP 97.7–98.1; O2SAT 94–100
[2025-01-06] MEDS: METOPROLOL SUCCINATE 25 MG TAB XL PO SCH (14:30)
[2025-01-06] MEDS: DIVALPROEX SODIUM 250 MG TAB...DR PO SCH (15:41)
[2025-01-07 07:14] LABS: RED CELL DISTRIBUTION WIDTH 13.8 % (11.7-14.4)
[2025-01-07 07:40] LABS: EST GLOMERULAR FILTRATION RATE 97.0 ML/MIN (>=60)
[2025-01-07 07:58] LABS: LYMPHOCYTES % (MANUAL) 11 % (19-48); MONOCYTES % (MANUAL) 7 % (3.4-9.0); NEUTROPHILS % (MANUAL) 82 % (40-74); PLATELET ESTIMATE ADEQUATE; PLATELET MORPHOLOGY COMMENT NORMAL
[2025-01-07 09:20] VITALS: BP 118/61; PULSE 80; RESP 18; TEMP 97.7; O2SAT 96
[2025-01-07 09:38] VITALS: BP 118/61; PULSE 80; RESP 18; TEMP 97.7; O2SAT 96
[2025-01-07 11:33] VITALS: BP 136/64; PULSE 82; RESP 19; TEMP 98.3; O2SAT 95
[2025-01-07 16:00] VITALS: BP 137/67; PULSE 83; RESP 20; TEMP 97.7; O2SAT 99
[2025-01-07 20:00] VITALS: BP 119/50; PULSE 75; RESP 17; TEMP 97.5; O2SAT 100
[2025-01-08 07:27] VITALS: BP 139/74; PULSE 74; RESP 20; TEMP 98.1; O2SAT 100
[2025-01-08 11:00] VITALS: BP 112/53; PULSE 73; RESP 18; TEMP 97.8; O2SAT 100
[2025-01-08 16:51] LABS: BASOPHILS % 0.6 % (0.0-1.0); EOSINOPHILS % 1.4 % (0.0-6.0); LYMPHOCYTES % 9.7 % (18.0-39.1); MONOCYTES % 8.6 % (4.4-11.3); NEUTROPHILS % 76.5 % (38.7-80.0); RED CELL DISTRIBUTION WIDTH 13.6 % (11.7-14.4)
[2025-01-08 17:09] LABS: EST GLOMERULAR FILTRATION RATE 97.0 ML/MIN (>=60)
[2025-01-08] MEDS: LEVETIRACETAM 500 MG TAB PO SCH (20:30)
[2025-01-08] MEDS: ONDANSETRON HCL INJ 2MG/ML 2ML 2 MG/ML VIAL IV PRN (23:14)
[2025-01-09] VITALS (8 sets, daily range): BP systolic 104–134; BP diastolic 50–72; PULSE 78–96; RESP 16–20; TEMP 97.7–98.5; O2SAT 95–100
[2025-01-09] MEDS: CEFEPIME 2 GM in SODIUM CHLORIDE 0.9% 100 ML IV SCH (13:58)
[2025-01-09] MEDS: PANTOPRAZOLE SOD 40 MG TABEC PO SCH (22:53)
[2025-01-10 05:29] VITALS: BP 141/62; PULSE 80; RESP 18; TEMP 98; O2SAT 97
[2025-01-10 07:04] LABS: BASOPHILS % 0.6 % (0.0-1.0); EOSINOPHILS % 3.2 % (0.0-6.0); LYMPHOCYTES % 16.3 % (18.0-39.1); MONOCYTES % 8.2 % (4.4-11.3); NEUTROPHILS % 65.4 % (38.7-80.0); RED CELL DISTRIBUTION WIDTH 13.8 % (11.7-14.4)
[2025-01-10 07:30] LABS: EST GLOMERULAR FILTRATION RATE 98.0 ML/MIN (>=60)
[2025-01-10 08:00] VITALS: BP 135/60; RESP 20; TEMP 98.2; O2SAT 100
[2025-01-10 09:00] VITALS: BP 135/60; PULSE 80; RESP 20; TEMP 98.2; O2SAT 100
[2025-01-10 12:00] VITALS: BP 129/60; PULSE 83; RESP 20; TEMP 98.4; O2SAT 100
[2025-01-10 12:23] LABS: EOSINOPHILS % (MANUAL) 1 % (0-7); LYMPHOCYTES % (MANUAL) 17 % (19-48); MONOCYTES % (MANUAL) 8 % (3.4-9.0); MYELOCYTES % (MANUAL) 3 % (0-0); NEUTROPHILS % (MANUAL) 71 % (40-74); PLATELET ESTIMATE ADEQUATE; PLATELET MORPHOLOGY COMMENT NORMAL; RBC MORPHOLOGY COMMENT NORMAL
[2025-01-10 16:30] VITALS: PULSE 83; RESP 20; TEMP 98.4; O2SAT 100
[2025-01-10 21:22] VITALS: BP 137/63; PULSE 98; RESP 17; TEMP 98.6; O2SAT 99
[2025-01-11 01:00] VITALS: BP 144/47; PULSE 104; RESP 18; TEMP 98.6; O2SAT 99
[2025-01-11] MEDS: METOPROLOL SUCCINATE 25 MG TAB XL PO SCH (01:26)
[2025-01-11 02:54] VITALS: BP 144/47; PULSE 104; RESP 18; TEMP 98.6; O2SAT 99
[2025-01-11 04:43] VITALS: BP 107/50; PULSE 73; RESP 16; TEMP 98.3; O2SAT 97
[2025-01-11 10:13] VITALS: BP 147/78; PULSE 84; RESP 20; TEMP 97.8; O2SAT 100
[2025-01-11 13:07] VITALS: BP 128/72; PULSE 77; RESP 20; TEMP 98.6; O2SAT 100
[2025-01-11] MEDS ORDERED: CEFEPIME 22 GM/100 M IV (16:46)
[2025-01-11] MEDS ORDERED: EFFER-K 20 MEQ20 MEQ PO (16:46)
[2025-01-11] MEDS ORDERED: DEPAKOTE250 MG PO (16:46)
[2025-01-11] MEDS ORDERED: THIAMINE H100 MG/1 M IV (16:46)
[2025-01-11] MEDS ORDERED: PLAVIX75 MG PO (16:46)
[2025-01-11] MEDS ORDERED: TOPROL XL25 MG PO (16:46)
[2025-01-11] MEDS ORDERED: KEPPRA500 MG PO (16:46)
[2025-01-11] MEDS ORDERED: ASPIRIN CHEW81 MG PO (16:46)
[2025-01-11] MEDS ORDERED: PROTONIX40 MG/ML PO (16:46)
[2025-01-11 17:41] VITALS: BP 129/73; PULSE 80; RESP 20; TEMP 98.4; O2SAT 100
[2025-01-12] MEDS ORDERED: LEVETIRACETAM 500 MG TAB PO SCH (09:00)
== END 2025-01-11 20:30 | DRG 100 ==
LOC: ER 12:35 → ERHOLD 16:16 → ICU 19:19 → MED/SURG3 01-06 07:36
PROVIDERS: ADMIT Internal Medicine; ATTEND Internal Medicine
PROC: 0T9B70Z Drainage of Bladder with Drainage Device, Via Natural or Artificial Opening (ICD-10-PCS; principal; 2024-12-31)
DX: G40.909 Epilepsy, unspecified, not intractable, without status epilepticus (principal); G92.8 Other toxic encephalopathy; G93.41 Metabolic encephalopathy; I62.03 Nontraumatic chronic subdural hemorrhage; J69.0 Pneumonitis due to inhalation of food and vomit; K50.90 Crohn's disease, unspecified, without complications; E46 Unspecified protein-calorie malnutrition; F13.20 Sedative, hypnotic or anxiolytic dependence, uncomplicated; I48.91 Unspecified atrial fibrillation; I25.10 Atherosclerotic heart disease of native coronary artery without angina pectoris; E78.5 Hyperlipidemia, unspecified; G47.30 Sleep apnea, unspecified; G47.419 Narcolepsy without cataplexy; M47.816 Spondylosis without myelopathy or radiculopathy, lumbar region; R33.9 Retention of urine, unspecified; D72.829 Elevated white blood cell count, unspecified; R45.1 Restlessness and agitation; E87.6 Hypokalemia; E83.39 Other disorders of phosphorus metabolism; L89.601 Pressure ulcer of unspecified heel, stage 1; T42.6X5A Adverse effect of other antiepileptic and sedative-hypnotic drugs, initial encounter; E83.42 Hypomagnesemia; R41.0 Disorientation, unspecified; I11.9 Hypertensive heart disease without heart failure; D64.9 Anemia, unspecified; Z79.01 Long term (current) use of anticoagulants; Z95.5 Presence of coronary angioplasty implant and graft; Z88.6 Allergy status to analgesic agent; Z88.1 Allergy status to other antibiotic agents; Z88.0 Allergy status to penicillin; Z88.8 Allergy status to other drugs, medicaments and biological substances; Z79.82 Long term (current) use of aspirin; Z79.84 Long term (current) use of oral hypoglycemic drugs; Z91.148 Patient's other noncompliance with medication regimen for other reason; Z78.1 Physical restraint status; Y92.9 Unspecified place or not applicable; Z91.81 History of falling; Z68.24 Body mass index [BMI] 24.0-24.9, adult
CPT/HCPCS: 36415; 51700; 70450; 71045; 72125; 80048; 80053; 80061; 80184; 80185; 81001; 82550; 82607; 82948; 83036; 83735; 84100; 84439; 84443; 84484; 85007; 85025; 85027; 85610; 85730; 87086; 93005; 93306; 95819; 99284; J0692; J0696; J2060; J2405; J2470; J2560; J3411; J3475; J3486; J7030; J7040; J7050